=== PATIENT | female | born 1940 | race Caucasian/White ===

== ENCOUNTER → 2017-10-20 | Outpatient (CLI) | payer OTHER ==
[~2017-10-20] MED LIST: ALEN70TA47 PO; APIX5TAB PO; CALC600T12 PO; CHOL50004 PO; DOXY25TA55 PO; FLEC50TA3 PO; LOSA1TAB54 PO; OMEG-98 PO; PANT40TA25 PO; SIMV20TA6 PO; atenolol PO; glucosamine PO; multivitamin PO
== END | disposition home or self-care (01) ==
LOC: SHCH 14:52
PROVIDERS: ATTEND Internal Medicine Cardiovascular Disease
DX: I87.2 Venous insufficiency (chronic) (peripheral) (principal); I10 Essential (primary) hypertension; E78.5 Hyperlipidemia, unspecified; K21.9 Gastro-esophageal reflux disease without esophagitis
CPT/HCPCS: 93970

== ENCOUNTER → 2017-12-21 | Outpatient (CLI) | payer OTHER | END | disposition home or self-care (01) | LOC: SHCH 10:28 | PROVIDERS: ATTEND Internal Medicine Cardiovascular Disease | DX: Z09 Encounter for follow-up examination after completed treatment for conditions other than malignant neoplasm (principal) | CPT/HCPCS: 93971 ==

== ENCOUNTER → 2018-01-18 | Outpatient (CLI) | payer OTHER | END | disposition home or self-care (01) | LOC: SHCH 08:27 | PROVIDERS: ATTEND Internal Medicine Cardiovascular Disease | DX: Z09 Encounter for follow-up examination after completed treatment for conditions other than malignant neoplasm (principal) | CPT/HCPCS: 93971 ==

== ENCOUNTER → 2018-05-25 | Outpatient (CLI) | payer OTHER ==
[~2018-05-25] MED LIST changes: +ALEN70TA10 PO; -ALEN70TA47 PO
== END | disposition home or self-care (01) ==
LOC: RAH 14:45
PROVIDERS: ATTEND Family Medicine
DX: R92.8 Other abnormal and inconclusive findings on diagnostic imaging of breast (principal)
CPT/HCPCS: 77066

== ENCOUNTER 2020-04-19 06:50 | Day surgery (SDC) | payer OTHER ==
[2020-04-16 14:32] LABS: BASOPHILS % (AUTO) 0.8 % (0.0-5.0); EOSINOPHILS % (AUTO) 1.5 % (0.0-8.0); HEMATOCRIT 42.5 % (36-48); LYMPHOCYTES % (AUTO) 24.6 % (21.0-51.0); MEAN CORPUSCULAR HEMOGLOBIN 30.2 pg (27.0-33.0); MEAN CORPUSCULAR HGB CONC 32.7 g/dL (32.0-36.0); MEAN CORPUSCULAR VOLUME 92.2 fL (79-99); MONOCYTES % (AUTO) 9.8 % (3.0-13.0); PLATELET COUNT (AUTO) 216 K/uL (130-400); RED BLOOD CELL COUNT(AUTO) 4.61 MIL/uL (4.00-5.50); RED CELL DISTRIBUTION WIDTH 11.9 % (11.0-15.5)
[2020-04-16 14:44] LABS: POTASSIUM 3.8 mmol/L (3.5-5.1)
[2020-04-18 12:33] VITALS: BP 155/75
[2020-04-19] VITALS (12 sets, daily range): BP systolic 111–169; BP diastolic 54–88
[~2020-04-19] VITALS: Ht 157.5 cm; Wt 75.7 kg
[~2020-04-19 06:50] MED LIST changes: -ALEN70TA10 PO; +ALEN70TA80 PO; +AMLO-257 PO; +CA C1TAB74 PO; -CALC600T12 PO; +CALC600T15 PO; -CHOL50004 PO; -DOXY25TA55 PO; +FLEC100T3 PO; -FLEC50TA3 PO; +GLUC100019 PO; +MULTIVITAMIN PO; +OMEP-420 PO; -PANT40TA25 PO; +SIMV-43 PO; -SIMV20TA6 PO; -atenolol PO; -glucosamine PO; -multivitamin PO
[2020-04-19] MEDS ORDERED: SODIUM CHLORIDE 0.9% 1000ML 1,000 ML IV SCH (08:00)
[2020-04-19] MEDS ORDERED: LIDOCAINE PF 2% 5ML ABBOJECT ONE (08:47)
[2020-04-19] MEDS ORDERED: SUCCINYLCHOLINE CHLORIDE 20 MG/ML 10 ML VIAL ONE (08:47)
[2020-04-19] MEDS ORDERED: PROPOFOL 10 MG/ML 20ML VIAL IV ONE (08:47)
== END 2020-04-19 10:06 | disposition home or self-care (01) ==
LOC: DAH 06:50
PROVIDERS: ATTEND Internal Medicine Cardiovascular Disease
DX: I48.19 Other persistent atrial fibrillation (principal); Z20.822 Contact with and (suspected) exposure to COVID-19; I10 Essential (primary) hypertension; E78.5 Hyperlipidemia, unspecified; K21.9 Gastro-esophageal reflux disease without esophagitis; E78.00 Pure hypercholesterolemia, unspecified; Z86.73 Personal history of transient ischemic attack (TIA), and cerebral infarction without residual deficits; Z98.890 Other specified postprocedural states; Z79.899 Other long term (current) drug therapy; Z79.01 Long term (current) use of anticoagulants; Z90.710 Acquired absence of both cervix and uterus; Z82.3 Family history of stroke; Z82.49 Family history of ischemic heart disease and other diseases of the circulatory system; Z80.9 Family history of malignant neoplasm, unspecified
CPT/HCPCS: 36415; 80048; 85025; 92960; 93005; A4215; A4216; A4221; A4222; A4223 ×3; A4606; A4615; A4663; C9803; J2001; J2704; J7030; U0003; 99156; 99157; J0330

== ENCOUNTER → 2020-05-03 | Outpatient (CLI) | payer OTHER | END | disposition home or self-care (01) | LOC: RAH 12:44 | PROVIDERS: ATTEND Internal Medicine Cardiovascular Disease | DX: G45.9 Transient cerebral ischemic attack, unspecified (principal); I48.0 Paroxysmal atrial fibrillation; I49.8 Other specified cardiac arrhythmias | CPT/HCPCS: 70551; 93880 ==

== ENCOUNTER 2020-06-01 12:23 | Observation (INO) | payer OTHER ==
[2020-05-31] MEDS: NITROGLYCERIN 1GM OINT 1 INCH/1GM TD SCH (23:30)
[~2020-06-01] VITALS: Ht 157.5 cm; Wt 75.4 kg
[~2020-06-01 12:23] MED LIST changes: +CALC-1125 PO; -CALC600T15 PO
[2020-06-01 13:07] LABS: BASOPHILS % (AUTO) 0.6 % (0.0-5.0); EOSINOPHILS % (AUTO) 0.9 % (0.0-8.0); HEMATOCRIT 44.1 % (36-48); LYMPHOCYTES % (AUTO) 23.6 % (21.0-51.0); MEAN CORPUSCULAR HEMOGLOBIN 30.1 pg (27.0-33.0); MEAN CORPUSCULAR HGB CONC 32.9 g/dL (32.0-36.0); MEAN CORPUSCULAR VOLUME 91.7 fL (79-99); MONOCYTES % (AUTO) 8.4 % (3.0-13.0); NEUTROPHILS % (AUTO) 66.3 % (40.0-77.0); PLATELET COUNT (AUTO) 197 K/uL (130-400); RED BLOOD CELL COUNT(AUTO) 4.81 MIL/uL (4.00-5.50); RED CELL DISTRIBUTION WIDTH 12.2 % (11.0-15.5); WHITE BLOOD COUNT (AUTO) 6.6 K/uL (4.8-10.8)
[2020-06-01 13:20] LABS: CARBON DIOXIDE 31 mmol/L (21-32); CHLORIDE 104 mmol/L (101-111); CREATININE 0.4 mg/dL (0.5-1.5); GLOMERULAR FILTR. RATE CALC 164 mL/min (>60); GLUCOSE,RANDOM 92 mg/dL (70-105); POTASSIUM 3.8 mmol/L (3.5-5.1); SODIUM SERUM 142 mmol/L (136-145); UREA NITROGEN, BLOOD 22 mg/dL (7-18)
[2020-06-01 13:30] LABS: ALANINE AMINOTRANSFERASE 29 U/L (12-78); ALBUMIN 4.1 g/dL (3.5-5.0); ASPARTATE AMINOTRANSFERASE 20 U/L (10-37); BILIRUBIN,TOTAL 0.8 mg/dL (0.2-1.0); CREATINE KINASE, TOTAL 76 U/L (21-232); MYOGLOBIN 53 ng/mL (10-92); TOTAL PROTEIN, SERUM 7.5 g/dL (6.0-8.3); TROPONIN I < 0.04 ng/mL (0.00-0.06)
[2020-06-01 13:47] LABS: B-TYPE NATRIURETIC PEPTIDE 422 pg/mL (0-100)
[2020-06-01] MEDS ORDERED: 0.9%NACL 10ML VIAL IVP PRN (14:30)
[2020-06-01] MEDS ORDERED: GLUCAGON 1MG KIT 1 MG ML IM PRN (14:30)
[2020-06-01] MEDS ORDERED: POTASSIUM CHLORIDE 10% ELIXIR 20 MEQ/15 ML UDCUP PO PRN (14:30)
[2020-06-01] MEDS ORDERED: DEXTROSE 50%-WATER 50 ML DISP.SYRIN IV PRN (14:30)
[2020-06-01] MEDS ORDERED: POTASSIUM CHLORIDE 20MEQ/100ML 100 ML IV PRN (14:30)
[2020-06-01] MEDS ORDERED: LIDOCAINE HCL-MPF 1% 2ML VIAL IJ PRN (14:30)
[2020-06-01] MEDS ORDERED: KCL 20 MEQ ERTAB PO PRN (14:30)
[2020-06-01] MEDS: NITROGLYCERIN 1GM OINT 1 INCH/1GM TD SCH (14:30)
[2020-06-01 15:53] VITALS: BP 129/68
[2020-06-01] MEDS: INSULIN R PO SS1 SQ SCH ×2 (16:30→20:22)
[2020-06-01 19:09] LABS: ALBUMIN 3.8 g/dL (3.5-5.0); BILIRUBIN,TOTAL 0.5 mg/dL (0.2-1.0); CREATININE 1.2 mg/dL (0.5-1.5); TOTAL PROTEIN, SERUM 7.2 g/dL (6.0-8.3)
[2020-06-01 19:14] LABS: CREATINE KINASE, TOTAL 81 U/L (21-232); MYOGLOBIN 46 ng/mL (10-92); TROPONIN I < 0.04 ng/mL (0.00-0.06)
[2020-06-01 19:20] VITALS: BP 92/65
[2020-06-01] MEDS: FLECAINIDE ACETATE 100 MG TABLET PO SCH (20:14)
[2020-06-01] MEDS: APIXABAN 5 MG TABLET PO SCH (20:14)
[2020-06-01] MEDS ORDERED: SIMVASTATIN 20 MG TABLET PO SCH (21:00)
[2020-06-01 23:13] VITALS: BP 177/80
[2020-06-01 23:39] VITALS: BP 135/74
[2020-06-02 01:06] LABS: CREATINE KINASE, TOTAL 64 U/L (21-232); MYOGLOBIN 36 ng/mL (10-92); TROPONIN I < 0.04 ng/mL (0.00-0.06)
[2020-06-02 05:15] VITALS: BP 133/84
[2020-06-02] MEDS: INSULIN R PO SS1 SQ SCH (05:25)
[2020-06-02 06:46] LABS: CREATINE KINASE, TOTAL 49 U/L (21-232); MYOGLOBIN 40 ng/mL (10-92); TROPONIN I < 0.04 ng/mL (0.00-0.06)
[2020-06-02] MEDS: APIXABAN 5 MG TABLET PO SCH (08:26)
[2020-06-02] MEDS: FLECAINIDE ACETATE 100 MG TABLET PO SCH (08:30)
[2020-06-02 08:33] VITALS: BP 145/84
[2020-06-02] MEDS ORDERED: PANTOPRAZOLE 40 MG TAB DR PO SCH (09:00)
[2020-06-02] MEDS ORDERED: LOSARTAN/HYDROCHLOROTHIAZIDE 50-12.5MG TABLET PO SCH (09:00)
[2020-06-02] MEDS ORDERED: ASPIRIN 81 MG EC TAB PO SCH (09:00)
[2020-06-02] MEDS ORDERED: METOPROLOL SUCCINATE 50 MG TAB.SR.24H PO SCH (09:00)
[2020-06-02] MEDS ORDERED: AMLODIPINE 5 MG TAB PO SCH (09:00)
[2020-06-02] MEDS: REGADENOSON 0.4 MG/5 ML PF SYG IVP SCH ×2 (11:00→13:08)
[2020-06-02 11:58] VITALS: BP 144/84
[2020-06-02] MEDS ORDERED: NITROGLYCERIN 1GM OINT 1 INCH/1GM TD SCH (14:00)
[2020-06-02] MEDS ORDERED: DILT120C89 PO (15:17)
== END 2020-06-02 16:10 | disposition home or self-care (01) ==
LOC: EDH 12:23 → 4CH 12:24 → INTOOBSV 12:24 → OBSVTOIN 12:24
PROVIDERS: ADMIT Internal Medicine; ATTEND Internal Medicine
DX: R07.89 Other chest pain (principal); I48.91 Unspecified atrial fibrillation; I10 Essential (primary) hypertension; I25.119 Atherosclerotic heart disease of native coronary artery with unspecified angina pectoris; E78.00 Pure hypercholesterolemia, unspecified; Z86.73 Personal history of transient ischemic attack (TIA), and cerebral infarction without residual deficits; Z90.710 Acquired absence of both cervix and uterus; Z98.82 Breast implant status; Z79.01 Long term (current) use of anticoagulants; Z79.899 Other long term (current) drug therapy
CPT/HCPCS: 36415 ×2; 71046; 78452; 80053 ×2; 82550 ×4; 82948 ×3; 83874 ×4; 83880; 84484 ×4; 85025; 93005 ×4; 93017; 93306; 93356; 99285; A9500 ×2; G0378 ×23; J2785; 96374

== ENCOUNTER 2023-11-17 07:50 | Day surgery (SDC) | payer OTHER ==
[~2023-11-17] VITALS: Ht 157.5 cm; Wt 72.1 kg
[2023-11-17] VITALS (11 sets, daily range): BP systolic 115–171; BP diastolic 59–91; PULSE 60–69; RESP 16–25; TEMP 97.2–97.7
[~2023-11-17 07:50] MED LIST changes: -ALEN70TA80 PO; -AMLO-257 PO; +ASPI-1005 PO; -CA C1TAB74 PO; -CALC-1125 PO; +DILT120C89 PO; -FLEC100T3 PO; -GLUC100019 PO; -MULTIVITAMIN PO; -OMEG-98 PO; +OXYB5TAB20 PO
[2023-11-17] MEDS: 0.9%NACL 1000ML 1,000 ML IV ONE (09:12)
[2023-11-17] MEDS ORDERED: proPOFol 10 MG/ML 20ML VIAL IV ONE (10:21)
== END 2023-11-17 11:40 | disposition home or self-care (01) ==
LOC: ENDO 07:50 → DAH 07:50 → ENDO 11:40
PROVIDERS: ATTEND Internal Medicine Gastroenterology
DX: R10.13 Epigastric pain (principal); K31.7 Polyp of stomach and duodenum; K44.9 Diaphragmatic hernia without obstruction or gangrene; K29.70 Gastritis, unspecified, without bleeding; I10 Essential (primary) hypertension; E78.00 Pure hypercholesterolemia, unspecified; I48.91 Unspecified atrial fibrillation; Z85.828 Personal history of other malignant neoplasm of skin; Z90.710 Acquired absence of both cervix and uterus; Z90.89 Acquired absence of other organs; Z98.42 Cataract extraction status, left eye; Z98.41 Cataract extraction status, right eye; Z86.73 Personal history of transient ischemic attack (TIA), and cerebral infarction without residual deficits; Z79.82 Long term (current) use of aspirin; Z79.899 Other long term (current) drug therapy
CPT/HCPCS: 43251; 43239; J7030 ×2; J2704; A4620; A7002; J3490

== ENCOUNTER → 2024-01-26 | Outpatient (CLI) | payer OTHER ==
--- NOTE | 2024-01-26 15:59 | HMCSR ---
APPROVED REPORT Bilateral Lower Extremity Venous Study for DVT., Venous Competence. Indications Varicose Veins, i87.1,i87.2 Vein Imaging CFV (R): Normal flow, augmentation and compression. No evidence of DVT. 11.3mm 3567ms of reflux. SFJ (R): Normal flow, augmentation and compression. No evidence of DVT. FEM (R): Normal flow, augmentation and compression. No evidence of DVT. POP (R): Normal flow, augmentation and compression. No evidence of DVT. DFV (R): Normal flow, augmentation and compression. No evidence of DVT. PTV (R): Normal flow, augmentation and compression. No evidence of DVT. Peroneals (R): Normal flow, augmentation and compression. No evidence of DVT. CFV (L): Normal flow, augmentation and compression. No evidence of DVT. 12.7mm 1625ms of reflux. SFJ (L): Normal flow, augmentation and compression. No evidence of DVT. FEM (L): Normal flow, augmentation and compression. No evidence of DVT. POP (L): Normal flow, augmentation and compression. No evidence of DVT. DFV (L): Normal flow, augmentation and compression. No evidence of DVT. PTV (L): Normal flow, augmentation and compression. No evidence of DVT. Peroneals (L): Normal flow, augmentation and compression. No evidence of DVT. Technologist Impression Deep veins of the bilateral lower extremities appear patent and compressible without evidence of thro mbus. Deep venous reflux in the RCFV and LCFV. Superficial venous insufficiency in the Right GSV residual and, RSSV, LGSV residual and LSSV. RGSV - must be varithena treatment junction 10.4mm 1994ms thigh 5.4mm 5400ms knee 4.5mm 1939ms (not connected proximally) calf 4.2mm 1817ms RSSV prox 2.1mm 828ms mid 2.3mm 0.0ms LGSV - must be varithena treatment junction 8.1mm 1683ms thigh 2.1mm 0.0ms (ends here) knee 5.4mm 2275ms (not connected proximally) calf 3.9mm 3042ms LSSV prox 1.7mm 767ms mid 2.6mm 558ms
== END | disposition home or self-care (01) ==
LOC: SHCH 14:34
PROVIDERS: ATTEND Internal Medicine Cardiovascular Disease
DX: I87.2 Venous insufficiency (chronic) (peripheral) (principal); I87.1 Compression of vein
CPT/HCPCS: 93970

== ENCOUNTER → 2024-06-27 | Outpatient (CLI) | payer OTHER ==
[2024-06-27 08:43] LABS: INR 0.98 (0.85-1.15); PROTHROMBIN TIME 10.4 SEC (9.6-11.6)
[2024-06-27 08:45] LABS: PARTIAL THROMBOPLASTIN TIME 27.1 SEC (26.3-35.5)
--- NOTE | 2024-06-27 09:25 | NUR ---
U/S GD RT BREAST BX TOLERATED PROCEDURE. PERFORMED BY DR Selvin PEREZ. PUNCTURE SITE TO RT BREAST. X2 SPECIMEN REMOVED AND SENT TO LAB. BREAST TISSUE MARKER DEPLOYED AT END OF PROCEDURE AT 0905. NO BLEEDING NOTED. DRESSING APPLIED WITH COOL PACK. DISCHARGE INSTRUCTIONS GIVEN. VERBALIZED UNDERSTANDING. DENIES PAIN. A&O. DISCHARGE VIA AMBULATORY.
--- NOTE | 2024-06-27 12:09 | HMCIMG ---
US BREAST BX 1ST LESION IR HISTORY: 10:00 position Case done by Dr. Forrester TECHNIQUE: Informed consent was obtained after explaining the procedure and potential complications to the patient. Timeout performed. All elements of maximal sterile barrier technique, including hand hygiene and cutaneous antisepsis were used. The breast was prepped and draped in a sterile fashion. Local anesthesia was applied and under ultrasound guidance a needle introducer was advanced into the lesion of interest. Then, 2 passes were made with a Bard 14-gauge coring needle. The biopsy needle was angled away from the margin of the implants last to avoid possible implant perforation. This was followed by placement of a metallic marker (clip). Mammographic views were performed that confirm adequate placement of the biopsy site marking clip. Completion images showed no hemorrhage. Sterile dressing applied. Patient tolerated the procedure well and was discharged home in good condition. Complications: None Blood loss: < 5 mL. IMPRESSION: Successful breast lesion core biopsy and marker placement.
== END ==
LOC: RAH 07:28
PROVIDERS: ATTEND Family Medicine
DX: N63.11 Unspecified lump in the right breast, upper outer quadrant (principal); I25.10 Atherosclerotic heart disease of native coronary artery without angina pectoris; K21.9 Gastro-esophageal reflux disease without esophagitis; E78.5 Hyperlipidemia, unspecified; I87.2 Venous insufficiency (chronic) (peripheral); I70.90 Unspecified atherosclerosis; I48.0 Paroxysmal atrial fibrillation; I08.1 Rheumatic disorders of both mitral and tricuspid valves; I12.9 Hypertensive chronic kidney disease with stage 1 through stage 4 chronic kidney disease, or unspecified chronic kidney disease; N18.9 Chronic kidney disease, unspecified; E66.3 Overweight; N39.41 Urge incontinence; Z68.28 Body mass index [BMI] 28.0-28.9, adult; Z90.89 Acquired absence of other organs; Z90.710 Acquired absence of both cervix and uterus; Z98.890 Other specified postprocedural states; Z80.9 Family history of malignant neoplasm, unspecified; Z82.3 Family history of stroke; Z82.49 Family history of ischemic heart disease and other diseases of the circulatory system; Z79.899 Other long term (current) drug therapy; Z79.01 Long term (current) use of anticoagulants
CPT/HCPCS: 19083; 85610; 85730; 88361; 36415; 88305; A4215 ×2; A4648